=== PATIENT | female | born 1950 | race Caucasian/White ===

== ENCOUNTER 2016-10-06 10:28 | Emergency (ER) | payer MEDICARE, OTHER ==
--- NOTE | ~2016-10-06 | EKG ---
PATIENT: OLINDA CANALES UNIT #: [id number] Ventricular Rate: 88 BPM Atrial Rate: 88 BPM P-R Interval: 128 ms QRS Duration: 86 ms Q-T Interval: 382 ms QTC Calculation(Bezet): 462 ms P [place]: 0 degrees Calculated R [place]: 15 degrees Calculated T [place]: 19 degrees Diagnosis Line: Normal sinus rhythm Nonspecific ST abnormality Diagnosis Line: Otherwise normal ECG Diagnosis Line: When compared with ECG of 03-AUG-2013 13:37, Diagnosis Line: Nonspecific T wave abnormality, improved in Diagnosis Line: Inferior leads Diagnosis Line: Nonspecific T wave abnormality no longer evident Diagnosis Line: in Anterolateral leads Diagnosis Line: Confirmed by LUCILA STEVENSON MD ([id number]) on 10/08/2016 Diagnosis Line: 9:12:00 AM INTERPRETING MD: GRAHAM PEGUERO
--- NOTE | ~2016-10-06 | CR63 ---
[facility] A Service of [facility] & [facility] RADIOLOGY TEXT RESULTS PATIENT: OLINDA CANALES LOCATION: [facility] : 54 UNIT #: [id number] AGE: [address]: Vivek Simeon MD SEX: F ORDER DR: [id number] [facility] [address] [place], [place] [address] [id number] E MR#: [id number] Acc #: [id number] NAME: OLINDA CANALES : 1950 SEX: F STUDY DATE/TIME: 10/06/2016 10:35 UNIT: [facility] ROOM: STUDY DESCRIPTION: CR Chest 2 View Attending Physician: Vivek Simeon M.D. Ordering Physician: Vivek Simeon M.D. Primary Care Physician: Primary Care Physician No MEDICAL IMAGING REPORT This report is preliminary unless electronic signature is present EXAM Chest 2 views, 10/06/2016 10:35 hours HISTORY 66-year-old woman with 3-day history of shortness of air and cough. History of diabetes and heart valve disease. COMPARISON 03/09/2016 FINDINGS Upright PA and lateral views of the chest demonstrate mild cardiomegaly and a tortuous aorta unchanged. The pulmonary vascularity is normal. There are stable benign calcified granulomatous changes. There are no acute pulmonary or pleural findings. IMPRESSION 1. Stable mild prominence of the cardiac silhouette with mildly tortuous aorta. 2. There are benign calcified granulomatous changes. No acute cardiopulmonary findings. No appreciable change from 03/09/2016. Dictated by... Faye Vargas M.D. THIS IS AN ELECTRONICALLY VERIFIED REPORT Faye Vargas M.D. at 10/07/2016 9:38 AM MELITA/teodora TD: 10/06/2016 15:38 JOB #: [id number] MEDICAL IMAGING REPORT [facility] A Service of [facility] & [facility] RADIOLOGY TEXT RESULTS PATIENT: OLINDA CANALES LOCATION: [facility] : 54 UNIT #: [id number] AGE: [address]: Vivek Simeon MD SEX: F ORDER DR: Page 1 of 1 COPY
[~2016-10-06 10:28] MED LIST: ALAVERT10 MG PO; ALBUTEROL17 GM INH; ALDACTAZIDE PO; ALPRAZOLAM PO; AMITRYPTYLINE PO; ASPIRIN PO; ASPIRINEC PO; AUGMENTIN400 MG PO; BACTRIM DS TABL1 TA1 PO; CALCIUM 5001 TAB PO; CLARITIN10 MG PO; COLACE PO; CRESTOR40 MG PO; DILANTIN KAPSE100 MG PO; DILANTIN PO; FEROSUL325 ( 651 PO; FLOVENT DISKU100 MCG IH; GLUCOPHAGE XR500 MG; GLUCOTROL PO; GLUCOTROL XL PO; IBUPROFEN PO; IMDUR PO; IMDUR-ER30 M1 PO; ISORDIL PO; JANUVIA50 MG PO; KEFLEX500 MG PO; KETOPROFEN PO; LIPITOR PO; LISINOPRIL PO; LOPID600 MG PO; LOPRESSOR PO; LOW DOSE ASPIRI81 M2 PO; METFORMIN; METFORMIN PO; NAPROSYN250 M1 PO; NIACIN PO; NITROSTAT0.4 MG SL; NORVASC PO; NORVASC10 MG PO; ORUDIS75 M1 PO; OYSTER SHELL C500 MG PO; PANTOPRAZOLE SO40 MG PO; PLAVIX PO; PRILOSEC PO; PROTONIX PO; SYNTHROID25 MCG PO; TESSALON200 MG PO; TYLENOL #3 PO; UNKNOWN MEDS; VIT D; VITAMIN D 4001 UDTAB PO; VITAMIN D1000 UNIT PO; VOLTAREN75 MG PO; ZITHROMAX PO; ZOCOR PO
[2016-10-06] MEDS ORDERED: AMITRIPTYLINE H50 MG PO (10:35)
[2016-10-06] MEDS ORDERED: AMLODIPINE BESY10 MG PO (10:35)
[2016-10-06] MEDS ORDERED: DILANTIN PO (10:35)
[2016-10-06] MEDS ORDERED: ZESTRIL30 MG PO (10:36)
[2016-10-06] MEDS ORDERED: PROTONIX PO (10:36)
[2016-10-06] MEDS ORDERED: IMDUR PO (10:36)
[2016-10-06] MEDS ORDERED: LEVOTHYROXINE100 MC1 PO (10:37)
[2016-10-06] MEDS ORDERED: CLARITIN10 M2 PO (10:37)
[2016-10-06] MEDS ORDERED: JANUVIA50 MG PO (10:38)
[2016-10-06] MEDS ORDERED: TYLENOL #3 PO (10:38)
[2016-10-06 11:38] LABS: BASOPHIL% 0.6 % (0-2.5); EOSINOPHIL# 0.1 X10e3 (0-0.7); HEMATOCRIT 29.8 % (35.0-45.0); HEMOGLOBIN 9.8 gm/dL (12.0-16.0); LYMPHOCYTE# 0.9 X10e3 (1.0-3.5); LYMPHOCYTE% 19.3 % (17.0-45.0); MEAN CELL VOLUME 79.9 FL (83-96); MEAN CORPUSCULAR HEMOGLOBIN 26.2 PG (28-34); MEAN CORPUSCULAR HGB CONC 32.8 g/dL (30-36); MEAN PLATELET VOLUME 8.8 FL (6.5-11.5); MONOCYTE# 0.5 X10e3 (0-1.0); MONOCYTE% 11.1 % (3.0-12.0); NEUTROPHIL# 3.1 X10e3 (1.5-7.1); PLATELET COUNT 184 X10e3 (140-420); RED BLOOD COUNT 3.74 X10e (3.90-5.30); RED CELL DISTRIBUTION WIDTH 15.8 % (11.0-15.5); WHITE BLOOD COUNT 4.7 X10e3 (4.0-10.5)
[2016-10-06 11:49] LABS: DIFF IND NO
[2016-10-06 12:09] LABS: BLOOD UREA NITROGEN 11 mg/dL (9-23); BUN/CREATININE RATIO 15.71; CARBON DIOXIDE 24 mmol/L (22-31); CHLORIDE 100 mmol/L (100-111); CREATININE SERUM 0.7 mg/dL (0.6-1.4); GLOM FILT RATE Estimated ABOVE60 mL/min (>60); GLUCOSE FASTING 134 mg/dL (70-110); POTASSIUM 3.6 mmol/L (3.5-5.1); SODIUM 133 mmol/L (135-145)
[2016-10-06 14:31] LABS: POC - CKMB <1.0 ng/mL (0.0-7.9); POC - TROPONIN <0.05 ng/mL (<=0.05)
== END 2016-10-06 13:55 | disposition home or self-care (01) ==
LOC: CED 10:28
PROVIDERS: Emergency Medicine
DX: J20.9 Acute bronchitis, unspecified (principal); E11.9 Type 2 diabetes mellitus without complications; I10 Essential (primary) hypertension; J44.9 Chronic obstructive pulmonary disease, unspecified; I25.10 Atherosclerotic heart disease of native coronary artery without angina pectoris; Z88.5 Allergy status to narcotic agent; Z79.899 Other long term (current) drug therapy
CPT/HCPCS: 36415; 71020; 80048; 82553; 83880; 84484; 85025; 93005; 94640; 99284

== ENCOUNTER → 2016-11-02 | Outpatient (CLI) | payer MEDICARE, OTHER ==
[~2016-11-02] MED LIST changes: +AMITRIPTYLINE H50 MG PO; +AMLODIPINE BESY10 MG PO; +CLARITIN10 M2 PO; +LEVOTHYROXINE100 MC1 PO; +ZESTRIL30 MG PO
== END | disposition home or self-care (01) ==
LOC: CLAB 10:26
DX: E03.9 Hypothyroidism, unspecified (principal)
CPT/HCPCS: 36415; 84443

== ENCOUNTER → 2017-01-20 | Outpatient (CLI) | payer MEDICARE, OTHER | END | disposition home or self-care (01) | LOC: CLAB 11:58 | DX: E03.9 Hypothyroidism, unspecified (principal) | CPT/HCPCS: 36415; 84443 ==

== ENCOUNTER 2017-02-25 13:55 | Emergency (ER) | payer MEDICARE, OTHER ==
[~2017-02-25] VITALS: Ht 165.1 cm; Wt 93.0 kg
--- NOTE | ~2017-02-25 | CR169 ---
[facility] A Service [facility] RADIOLOGY TEXT RESULTS PATIENT: OLINDA CANALES LOCATION: [place] : 54 UNIT #: [id number] AGE: [address]: Stephany Sanchez APRN SEX: F ORDER DR: [id number] [facility] [address] [place], [place] [address] [id number] E MR#: [id number] Acc #: [id number] NAME: OLINDA CANALES : 1950 SEX: F STUDY DATE/TIME: 02/25/2017 15:20 UNIT: [facility] ROOM: STUDY DESCRIPTION: CR Knee 2 Views Lt Attending Physician: Stephany Sanchez A.P.R.N. Ordering Physician: [facility] Primary Care Physician: Bandar Levine M.D. MEDICAL IMAGING REPORT This report is preliminary unless electronic signature is present EXAM Left knee series 02/25/2017 HISTORY Fall 1 week ago. TECHNIQUE AP and lateral and sunrise views of the left knee are presented. COMPARISON STUDIES 09/28/2007. FINDINGS No traumatic fracture or malalignment. Moderate narrowing of the medial joint space compartment, more pronounced than in 2007. Articular surface marginal osteophyte formations, most pronounced medial joint space compartment and more prominent than on prior study. Mild narrowing patellofemoral joint space compartment. Probable small effusion suprapatellar recess. No soft tissue defect, subcutaneous air or radiodense foreign body. Prominent venous varicosities medial thigh and visualized foreleg. Dictated by... Dustin Woodson M.D. THIS IS AN ELECTRONICALLY VERIFIED REPORT Dustin Woodson M.D. at 02/26/2017 6:15 PM Lilly TD: 02/25/2017 21:57 JOB #: [id number] [facility] A Service [facility] & [facility] RADIOLOGY TEXT RESULTS PATIENT: OLINDA CANALES LOCATION: [facility] : 54 UNIT #: [id number] AGE: [address]: Stephany Sanchez APRN SEX: F ORDER DR: MEDICAL IMAGING REPORT Page 1 of 1 COPY
== END 2017-02-25 16:53 | disposition home or self-care (01) ==
LOC: CFTX 13:55 → CED 13:55 → CFTX 15:28
DX: S86.912A Strain of unspecified muscle(s) and tendon(s) at lower leg level, left leg, initial encounter (principal); E11.9 Type 2 diabetes mellitus without complications; J45.909 Unspecified asthma, uncomplicated; I11.0 Hypertensive heart disease with heart failure; I50.9 Heart failure, unspecified; W03.XXXA Other fall on same level due to collision with another person, initial encounter; Y92.410 Unspecified street and highway as the place of occurrence of the external cause; Z88.5 Allergy status to narcotic agent; Z91.048 Other nonmedicinal substance allergy status
CPT/HCPCS: 29505; 73560; 99283